=== PATIENT | female | born 1940 | race Caucasian/White ===

== ENCOUNTER 2023-04-22 19:38 | Inpatient (IN) | payer MEDICARE, BC ==
[2023-04-22 20:24] LABS: #Monocytes 0.9 thou/uL (0.11-0.59); #Neutrophils 7.2 thou/uL (1.40-6.50); %Basophils 0.2 % (0.0-1.0); %Lymphocytes 4.1 % (21.0-51.0); %Monocytes 10.6 % (0.0-10.0); %Neutrophils 84.4 % (42.0-75.0); Hematocrit 36.4 % (36.0-47.0); Hemoglobin 12.5 g/dL (12.0-16.0); Mean Corpuscular HGB CONC 34.3 g/dL (32.0-36.0); Mean Corpuscular Hemoglobin 36.4 pg (27.0-31.0); Mean Corpuscular Volume 106.1 fl (78.0-98.0); Mean Platelet Volume 10.3 fL (7.4-10.4); Platelet Count 153 10x3/uL (130-400); RBC Distribution Width 13.3 % (11.5-14.5); Red Blood Cell (RBC) Count 3.43 mill/uL (4.20-5.40); White Blood Cell (WBC) Count 8.5 10x3/uL (4.8-10.8)
[2023-04-22 20:57] LABS: ALT (SGPT) 22 U/L (8-55); AST (SGOT) 35 U/L (5-34); Albumin 4.6 g/dL (3.4-4.8); Alkaline Phosphatase 69 U/L (40-110); Anion Gap 16 mmol/L (10-20); BUN (Urea Nitrogen) 29 mg/dL (9.8-20.1); CK (CPK) 1022 U/L (29-168); Calc. Creatinine Clearance 0 mL/min (70-130); Calcium 10.1 mg/dL (7.8-10.44); Carbon Dioxide 26 mmol/L (23-31); Chloride 102 mmol/L (98-107); Estimated GFR 35; Globulin 2.8 g/dL (2.4-3.5); Glucose 150 mg/dL (83-110); Potassium 3.9 mmol/L (3.5-5.1); Protein, Total 7.4 g/dL (5.8-8.1); Sodium 140 mmol/L (136-145)
[2023-04-22 21:00] LABS: Troponin I 0.244 ng/mL (< 0.028)
[2023-04-22] MEDS ORDERED: Aspirin 325 MG TAB ONE (21:02)
[2023-04-22 21:58] LABS: Bacteria/HPF 3+ HPF (None Seen); Bilirubin Negative (Negative); Blood, Urine 3+ (Negative); CAUTI Indications for Culture Alt mental st,lethar; Clarity Turbid (Clear); Glucose, Urine (Dipstick) 30 mg/dL (Negative); Ketone, Urine Negative (Negative); Leukocyte 250 Leu/uL (Negative); Nitrite 1+ (Negative); Protein, Urine (Dipstick) 10 mg/dL (Neg-Trace); RBC/HPF 21-50 HPF (0-3); Renal Epithelial 0-3 HPF (None Seen); Squamous Epithelial None Seen HPF (0-3); Urobilinogen Normal mg/dL (Less than 2); WBC/HPF 21-50 HPF (0-3); Yeast-Budding Rare HPF (None Seen); pH, Urine 6.5 (5.0-9.0)
[2023-04-22 21:59] LABS: Urine Culture Reflex Yes Yes
[2023-04-22] MEDS ORDERED: Sodium Chloride 0.9% 100 ML ONE (22:17)
[2023-04-22] MEDS ORDERED: cefTRIAXone (ROCEPHIN) 1 GM VIAL ONE (22:17)
[2023-04-22] MEDS ORDERED: Sodium Chloride 0.9% 1,000 ML IV SCH (23:15)
[2023-04-22 23:58] VITALS: BMI 23.8
[2023-04-23] MEDS ORDERED: Ondansetron PF 4 MG/2 ML Vial IVP PRN (02:05)
[2023-04-23] MEDS ORDERED: Acetaminophen 325 MG TAB PO PRN (02:05)
[2023-04-23] MEDS: Sodium Chloride 0.9% 1,000 ML IV SCH ×3 (02:45→18:37)
[2023-04-23 03:55] LABS: #Eosinphils 0.1 thou/uL (0.0-0.7); #Monocytes 0.5 thou/uL (0.11-0.59); #Neutrophils 3.7 thou/uL (1.40-6.50); %Lymphocytes 11.3 % (21.0-51.0); %Monocytes 9.6 % (0.0-10.0); %Neutrophils 77.5 % (42.0-75.0); Hematocrit 30.1 % (36.0-47.0); Hemoglobin 10.3 g/dL (12.0-16.0); Mean Corpuscular HGB CONC 34.2 g/dL (32.0-36.0); Mean Corpuscular Hemoglobin 36.5 pg (27.0-31.0); Mean Corpuscular Volume 106.7 fl (78.0-98.0); Platelet Count 137 10x3/uL (130-400); RBC Distribution Width 13.6 % (11.5-14.5); Red Blood Cell (RBC) Count 2.82 mill/uL (4.20-5.40); White Blood Cell (WBC) Count 4.8 10x3/uL (4.8-10.8)
[2023-04-23 04:17] LABS: Anion Gap 16 mmol/L (10-20); BUN (Urea Nitrogen) 24 mg/dL (9.8-20.1); Calc. Creatinine Clearance 47 mL/min (70-130); Calcium 8.7 mg/dL (7.8-10.44); Carbon Dioxide 23 mmol/L (23-31); Chloride 107 mmol/L (98-107); Estimated GFR 66; Glucose 87 mg/dL (83-110); Potassium 3.5 mmol/L (3.5-5.1); Sodium 142 mmol/L (136-145)
[2023-04-23 04:26] LABS: Critical Call Chem Troponin I RESULT DECREASING; Troponin I 0.226 ng/mL (< 0.028)
[2023-04-23] MEDS: Amlodipine 5 MG TAB PO SCH (08:06)
[2023-04-23] MEDS: Colestipol 1 GM TAB PO SCH (10:12)
[2023-04-23] MEDS: cefTRIAXone\\ROCEPHIN 1 GM in Sodium Chloride 0.9% 100 ML IVPB SCH (20:55)
[2023-04-24] MEDS: Sodium Chloride 0.9% 1,000 ML IV SCH ×2 (03:27→12:30)
[2023-04-24 04:27] LABS: #Eosinphils 0.3 thou/uL (0.0-0.7); #Monocytes 0.5 thou/uL (0.11-0.59); #Neutrophils 2.5 thou/uL (1.40-6.50); %Basophils 0.3 % (0.0-1.0); %Eosinophils 7.6 % (0.0-10.0); %Lymphocytes 12.4 % (21.0-51.0); %Monocytes 12.6 % (0.0-10.0); %Neutrophils 66.6 % (42.0-75.0); Hematocrit 31.5 % (36.0-47.0); Hemoglobin 10.2 g/dL (12.0-16.0); Mean Corpuscular HGB CONC 32.4 g/dL (32.0-36.0); Mean Corpuscular Hemoglobin 35.4 pg (27.0-31.0); Mean Corpuscular Volume 109.4 fl (78.0-98.0); Mean Platelet Volume 10.6 fL (7.4-10.4); Platelet Count 121 10x3/uL (130-400); RBC Distribution Width 13.6 % (11.5-14.5); Red Blood Cell (RBC) Count 2.88 mill/uL (4.20-5.40); White Blood Cell (WBC) Count 3.8 10x3/uL (4.8-10.8)
[2023-04-24 05:00] LABS: Anion Gap 12 mmol/L (10-20); BUN (Urea Nitrogen) 14 mg/dL (9.8-20.1); Calc. Creatinine Clearance 51 mL/min (70-130); Calcium 7.7 mg/dL (7.8-10.44); Carbon Dioxide 21 mmol/L (23-31); Chloride 109 mmol/L (98-107); Estimated GFR 75; Glucose 85 mg/dL (83-110); Potassium 3.2 mmol/L (3.5-5.1); Sodium 139 mmol/L (136-145)
[2023-04-24] MEDS ORDERED: Potassium Chloride 20 MEQ TAB PO SCH ×3 (07:45→21:00)
[2023-04-24] MEDS: Colestipol 1 GM TAB PO SCH (09:22)
[2023-04-24] MEDS: Amlodipine 5 MG TAB PO SCH (09:22)
[2023-04-24] MEDS: Potassium Chloride 20 MEQ in Premix 1 BAG IVPB SCH ×2 (09:26→10:41)
[2023-04-24] MEDS ORDERED: Dexamethasone 4 MG TAB PO SCH (10:15)
[2023-04-24] MEDS: Aspirin 81 mg Enteric Coated Tablet PO SCH (11:50)
[2023-04-24] MEDS: cefTRIAXone\\ROCEPHIN 1 GM in Sodium Chloride 0.9% 100 ML IVPB SCH (21:51)
[2023-04-25 04:39] LABS: #Monocytes 0.5 thou/uL (0.11-0.59); #Neutrophils 3.4 thou/uL (1.40-6.50); %Basophils 0.4 % (0.0-1.0); %Lymphocytes 12.8 % (21.0-51.0); %Monocytes 11.3 % (0.0-10.0); %Neutrophils 74.8 % (42.0-75.0); Hematocrit 30.8 % (36.0-47.0); Hemoglobin 10.4 g/dL (12.0-16.0); Mean Corpuscular HGB CONC 33.8 g/dL (32.0-36.0); Mean Corpuscular Hemoglobin 36.1 pg (27.0-31.0); Mean Corpuscular Volume 106.9 fl (78.0-98.0); Mean Platelet Volume 10.6 fL (7.4-10.4); Platelet Count 150 10x3/uL (130-400); RBC Distribution Width 13.3 % (11.5-14.5); Red Blood Cell (RBC) Count 2.88 mill/uL (4.20-5.40); White Blood Cell (WBC) Count 4.5 10x3/uL (4.8-10.8)
[2023-04-25 04:59] LABS: Anion Gap 11 mmol/L (10-20); BUN (Urea Nitrogen) 13 mg/dL (9.8-20.1); Calc. Creatinine Clearance 60 mL/min (70-130); Calcium 8.1 mg/dL (7.8-10.44); Carbon Dioxide 22 mmol/L (23-31); Chloride 111 mmol/L (98-107); Estimated GFR 87; Glucose 141 mg/dL (83-110); Potassium 4.3 mmol/L (3.5-5.1); Sodium 140 mmol/L (136-145)
[2023-04-25] MEDS ORDERED: Non-Formulary Item 1 EACH (Ubidecarenone [Co Q-10] 200 MG Capsule) PO SCH (09:00)
[2023-04-25] MEDS ORDERED: CHOLECALCIFEROL 50 MCG PO SCH (09:00)
[2023-04-25] MEDS ORDERED: LENALIDOMIDE 10 MG PO SCH ×2 (09:00)
[2023-04-25] MEDS: CO Q-10 CAPSULE 100 MG PO SCH (09:00)
[2023-04-25] MEDS: Calcium Carbonate 600 MG + Vit D TAB PO SCH (09:01)
[2023-04-25] MEDS: Aspirin 81 mg Enteric Coated Tablet PO SCH (09:01)
[2023-04-25] MEDS: Amlodipine 5 MG TAB PO SCH (09:01)
[2023-04-25] MEDS: Cholecalciferol 1,000 UNITS (25 MCG) TAB PO SCH (09:01)
[2023-04-25] MEDS: Colestipol 1 GM TAB PO SCH (13:03)
[2023-04-25] MEDS: cefTRIAXone\\ROCEPHIN 1 GM in Sodium Chloride 0.9% 100 ML IVPB SCH (21:41)
[2023-04-26 07:15] LABS: #Eosinphils 0.3 thou/uL (0.0-0.7); #Monocytes 0.5 thou/uL (0.11-0.59); %Basophils 0.3 % (0.0-1.0); %Eosinophils 7.2 % (0.0-10.0); %Lymphocytes 23.6 % (21.0-51.0); %Monocytes 14.5 % (0.0-10.0); %Neutrophils 53.9 % (42.0-75.0); Hematocrit 30.9 % (36.0-47.0); Hemoglobin 10.2 g/dL (12.0-16.0); Mean Corpuscular Hemoglobin 35.5 pg (27.0-31.0); Mean Corpuscular Volume 107.7 fl (78.0-98.0); Mean Platelet Volume 10.2 fL (7.4-10.4); Platelet Count 153 10x3/uL (130-400); RBC Distribution Width 13.5 % (11.5-14.5); Red Blood Cell (RBC) Count 2.87 mill/uL (4.20-5.40); White Blood Cell (WBC) Count 3.7 10x3/uL (4.8-10.8)
[2023-04-26 07:33] LABS: Anion Gap 12 mmol/L (10-20); BUN (Urea Nitrogen) 19 mg/dL (9.8-20.1); Calc. Creatinine Clearance 58 mL/min (70-130); Calcium 8.4 mg/dL (7.8-10.44); Carbon Dioxide 24 mmol/L (23-31); Chloride 110 mmol/L (98-107); Estimated GFR 86; Glucose 79 mg/dL (83-110); Potassium 3.6 mmol/L (3.5-5.1); Sodium 142 mmol/L (136-145)
[2023-04-26] MEDS: Amlodipine 5 MG TAB PO SCH (08:27)
[2023-04-26] MEDS: Calcium Carbonate 600 MG + Vit D TAB PO SCH (08:27)
[2023-04-26] MEDS: CO Q-10 CAPSULE 100 MG PO SCH (08:27)
[2023-04-26] MEDS: Aspirin 81 mg Enteric Coated Tablet PO SCH (08:27)
[2023-04-26] MEDS: Cholecalciferol 1,000 UNITS (25 MCG) TAB PO SCH (08:27)
[2023-04-26] MEDS ORDERED: FLU VACC QS2023(65UP)/MF59C/PF 60 MCG/0.5 ML SYRINGE IM ONE (09:00)
[2023-04-26] MEDS: Colestipol 1 GM TAB PO SCH (11:51)
[2023-04-26 12:46] VITALS: BP 127/66; TEMP 98.2
[2023-05-01] MEDS ORDERED: Dexamethasone 4 MG TAB PO SCH (09:00)
== END 2023-04-26 18:56 | DRG 558 ==
LOC: ERS 19:38 → ERHOLD 22:50 → 2SE 04-23 00:37
PROVIDERS: ADMIT Internal Medicine; ATTEND Hospitalist
DX: M62.82 Rhabdomyolysis (principal); C90.00 Multiple myeloma not having achieved remission; N39.0 Urinary tract infection, site not specified; N17.9 Acute kidney failure, unspecified; Z66 Do not resuscitate; I10 Essential (primary) hypertension; R53.1 Weakness; W18.30XA Fall on same level, unspecified, initial encounter; R30.0 Dysuria; M25.552 Pain in left hip; R06.02 Shortness of breath; R77.8 Other specified abnormalities of plasma proteins; K52.9 Noninfective gastroenteritis and colitis, unspecified; B96.20 Unspecified Escherichia coli [E. coli] as the cause of diseases classified elsewhere; E87.6 Hypokalemia; Z79.899 Other long term (current) drug therapy; Z87.891 Personal history of nicotine dependence
CPT/HCPCS: 36415; 70450; 72125; 80048; 80053; 81001; 82550; 83880; 84484; 85025; 87077; 87086; 87186; 93005; 94760; 96361; 96365; J0696; J3480; J3490; J7050; J8540

== ENCOUNTER 2024-01-05 08:03 | Outpatient (CLI) | payer MEDICARE, BC ==
[2024-01-05] MEDS ORDERED: Iopamidol 370 76% 100 ML VIAL ONE (10:48)
== END 2024-01-05 08:04 | disposition home or self-care (01) ==
LOC: BICCT 08:03
PROVIDERS: ATTEND Internal Medicine
DX: M85.80 Other specified disorders of bone density and structure, unspecified site (principal); R91.8 Other nonspecific abnormal finding of lung field; C90.01 Multiple myeloma in remission; D80.1 Nonfamilial hypogammaglobulinemia; M81.0 Age-related osteoporosis without current pathological fracture
CPT/HCPCS: 71260; 77080; 82565; Q9967